=== PATIENT | female | born 1990 | race Caucasian/White ===

== ENCOUNTER 2018-08-03 17:42 | Emergency (ER) | payer BC ==
[2018-08-03] MEDS ORDERED: NS 0.9% 1000 ML** 1,000 ML IV ONE (18:04)
[2018-08-03 18:22] LABS: ABS Basophils 0.1 10^3/ul (0-0.2); ABS Lymphocytes 2.3 10^3/ul (1.0-4.8); ABS Monocytes 0.4 10^3/ul (0-0.8); Eosinophil % 0.6 %; Hematocrit 38 % (35-47); Hemoglobin 13.1 g/dL (12.0-16.0); Lymphocyte % 34.7 %; Mean Corpuscular HGB Conc 34 g/dL (31-36); Mean Corpuscular Hemoglobin 31 pg (27-31); Mean Corpuscular Volume 90 fL (80-97); Mean Platelet Volume 7.1 fL (7.4-10.4); Nucleated Red Blood Cells % 0.1; Platelet Count 312 10^3/uL (150-450); Red Blood Count 4.26 10^6 /uL (3.70-4.87); Red Cell Distribution Width 13 % (10.5-15); White Blood Count 6.8 10^3/uL (3.5-10.8)
[2018-08-03 18:33] LABS: ALT 26 U/L (7-52); AST 18 U/L (13-39); Albumin 4.1 g/dL (3.2-5.2); Albumin/Globulin Ratio 1.2 (1-3); Alkaline Phosphatase 46 U/L (34-104); Anion Gap 7 mmol/L (2-11); BUN/Creatinine Ratio 13.8 (8-20); Blood Urea Nitrogen 11 mg/dL (6-24); C Reactive Protein 2.95 mg/L (<8.01); CO2 Carbon Dioxide 26 mmol/L (22-32); Calcium 8.8 mg/dL (8.6-10.3); Chloride 106 mmol/L (101-111); EGFR African American 104.9 (>60); EGFR Non-African American 86.7 (>60); Globulin 3.3 g/dL (2-4); Glucose 86 mg/dL (70-100); Potassium 4.1 mmol/L (3.5-5.0); Sodium 139 mmol/L (135-145); Total Protein 7.4 g/dL (6.4-8.9)
[2018-08-03 18:39] LABS: HCG Pregnancy < 0.60 mIU/mL
--- NOTE | 2018-08-03 18:51 | ED ---
Respiratory - HPI Summary HPI Summary: Patient complains of hacking cough, fatigue 1 week, lightheadedness, hot spells , chills and fluttering heart 2 days. Denies LOC. Patient was seen at urgent care, had normal EKG and was sent to the ED for blood work. Active symptoms are mild headache, denies any other symptoms at this time. Patient states she hydrates regularly. No antipyretics today. Denies known fever, sore throat, CP , SOB, N/V/D, abdominal pain, change in urine, change in BM. Medical history as migraines. - History of Current Complaint Chief Complaint: EDGeneral Stated Complaint: GENERAL PER PT Time Seen by Provider: 08/03/18 18:00 Hx Obtained From: Patient Onset/Duration: Gradual Onset Initial Severity: Mild Current Severity: Mild Pain Intensity: 2 Character: Cough (Nonproductive) Sputum Amount: None Alleviating Factor(s): Nothing Associated Signs and Symptoms: Chills - Allergy/Home Medications Allergies/Adverse Reactions: Allergies Allergy/AdvReac Type Severity Reaction Status Date / Time No Known Allergies Allergy Verified 08/03/18 17:48 Home Medications: Home Medications Norgestimate-Ethinyl Estradiol [Tri-Sprintec Tablet] 1 tab PO DAILY 08/03/18 [ History Confirmed 08/03/18] PMH/Surg Hx/FS Hx/Imm Hx Endocrine/Hematology History: Denies: Hx Diabetes, Hx Thyroid Disease Cardiovascular History: Denies: Hx Congestive Heart Failure, Hx Hypertension, Hx Pacemaker/ICD Respiratory History: Denies: Hx Asthma, Hx Chronic Obstructive Pulmonary Disease (COPD) GI History: Denies: Hx Ulcer History: Denies: Hx Dialysis Sensory History: Denies: Hx Eye Prosthesis Opthamlomology History: Denies: Hx Legally Blind EENT History: Denies: Hx Deafness Neurological History: Denies: Hx Dementia Infectious Disease History: No Infectious Disease History: Denies: Hx Hepatitis, Hx Human Immunodeficiency Virus (HIV), Traveled Outside the [place] in Last 30 Days - Family History Known Family History: Positive: Hypertension, Diabetes - Social History Alcohol Use: Occasionally Substance Use Type: Reports: None Smoking Status (MU): Never Smoked Tobacco Review of Systems Positive: Chills, Fatigue Eyes: Negative ENT: Negative Positive: Palpitations Positive: Cough Gastrointestinal: Negative Genitourinary: Negative Musculoskeletal: Negative Skin: Negative Positive: Headache Psychological: Normal All Other Systems Reviewed And Are Negative: Yes Physical Exam - Summary Physical Exam Summary: Lung sounds clear to auscultation bilaterally. Abdomen soft nontender. RRR. ENT exam unremarkable. Triage Information Reviewed: Yes Vital Signs On Initial Exam: Initial Vitals Temp Pulse Resp BP Pulse Ox 97.8 F 69 17 124/82 100 08/03/18 17:44 08/03/18 17:44 08/03/18 17:44 08/03/18 17:44 08/03/18 17:44 Vital Signs Reviewed: Yes Appearance: Positive: Well-Appearing Skin: Positive: Warm Head/Face: Positive: Normal Head/Face Inspection Eyes: Positive: Normal ENT: Positive: Normal ENT inspection Neck: Positive: Supple Respiratory/Lung Sounds: Positive: Clear to Auscultation Cardiovascular: Positive: Normal Abdomen Description: Positive: Nontender Musculoskeletal: Positive: Normal Neurological: Positive: Normal Psychiatric: Positive: Normal AVPU Assessment: Alert - Lydia Coma Scale Best Eye Response: 4 - Spontaneous Best Motor Response: 6 - Obeys Commands Best Verbal Response: 5 - Oriented Coma Scale Total: 15 Diagnostics - Vital Signs Vital Signs Temp Pulse Resp BP Pulse Ox 08/03/18 17:44 97.8 F 69 17 124/82 100 - Laboratory Lab Results: Lab Results 08/03/18 08/03/18 Range/Units 18:10 18:10 WBC 6.8 (3.5-10.8) 10^3/uL RBC 4.26 (3.70-4.87) 10^6 /uL Hgb 13.1 (12.0-16.0) g/dL Hct 38 (35-47) % MCV 90 (80-97) fL MCH 31 (27-31) pg MCHC 34 (31-36) g/dL RDW 13 (10.5-15) % Plt Count 312 (150-450) 10^3/uL MPV 7.1 L (7.4-10.4) fL Neut % (Auto) 58.4 % Lymph % (Auto) 34.7 % [place] % (Auto) 5.3 % Eos % (Auto) 0.6 % Baso % (Auto) 1.0 % Absolute Neuts (auto) 4.0 (1.5-7.7) 10^3/ul Absolute Lymphs (auto) 2.3 (1.0-4.8) 10^3/ul Absolute Monos (auto) 0.4 (0-0.8) 10^3/ul Absolute Eos (auto) 0.0 (0-0.6) 10^3/ul Absolute Basos (auto) 0.1 (0-0.2) 10^3/ul Absolute Nucleated RBC 0.0 10^3/ul Nucleated RBC % 0.1 Sodium 139 (135-145) mmol/L Potassium 4.1 (3.5-5.0) mmol/L Chloride 106 (101-111) mmol/L Carbon Dioxide 26 (22-32) mmol/L Anion Gap 7 (2-11) mmol/L BUN 11 (6-24) mg/dL Creatinine 0.80 (0.51-0.95) mg/dL Est GFR ( Amer) 104.9 (>60) Est GFR (Non-Af Amer) 86.7 (>60) BUN/Creatinine Ratio 13.8 (8-20) Glucose 86 (70-100) mg/dL Calcium 8.8 (8.6-10.3) mg/dL Total Bilirubin 0.30 (0.2-1.0) mg/dL AST 18 (13-39) U/L ALT 26 (7-52) U/L Alkaline Phosphatase 46 (34-104) U/L C-Reactive Protein 2.95 (<8.01) mg/L Total Protein 7.4 (6.4-8.9) g/dL Albumin 4.1 (3.2-5.2) g/dL Globulin 3.3 (2-4) g/dL Albumin/Globulin Ratio 1.2 (1-3) TSH Pending Beta HCG, Quant < 0.60 mIU/mL Result Diagrams: 08/03/18 18:10 08/03/18 18:10 Lab Statement: Any lab studies that have been ordered have been reviewed, and results considered in the medical decision making process. Disposition - Course Course Of Treatment: Patient complains of hacking cough, fatigue 1 week, lightheadedness, hot spells, chills and fluttering heart 2 days. Denies LOC. Patient was seen at urgent care, had normal EKG and was sent to the ED for blood work. Active symptoms are mild headache, denies any other symptoms at this time. Patient states she hydrates regularly. No antipyretics today. Denies known fever, sore throat, CP, SOB, N/V/D, abdominal pain, change in urine , change in BM. Medical history as migraines. Physical exam:Lung sounds clear to auscultation bilaterally. Abdomen soft nontender. RRR. ENT exam unremarkable. Vital signs within normal limits. Labs unremarkable. EKG sinus rhythm. Chest x-ray negative for acute process. Diagnosis viral syndrome. - Diagnoses Provider Diagnoses: Viral syndrome Discharge - Sign-Out/Discharge Documenting (check all that apply): Patient Departure Patient Received Moderate/Deep Sedation with Procedure: No - Discharge Plan Condition: Stable Disposition: HOME Patient Education Materials: Viral Syndrome (ED) Referrals: No Primary Care Phys,NOPCP [Primary Care Provider] - Additional Instructions: Drink plenty of fluids to maintain hydration. Take Tylenol or ibuprofen for control of fever and headaches. Rest. Follow-up with primary care. Return to the ED for any new or worsening symptoms. - Billing Disposition and Condition Condition: STABLE Disposition: Home
[2018-08-03 18:59] LABS: TSH (Thyroid Stimulating Horm) 4.34 mcIU/mL (0.34-5.60)
[2018-08-03 20:00] VITALS: BP 100/59
== END 2018-08-03 20:05 | disposition home or self-care (01) ==
LOC: ED 17:42
DX: R05 Cough (principal); R53.83 Other fatigue; R53.1 Weakness; B34.9 Viral infection, unspecified
CPT/HCPCS: 36415; 71046; 80053; 84443; 84702; 85025; 86140; 93005; 96360; 99283

== ENCOUNTER 2018-08-10 18:48 | Emergency (ER) | payer BC ==
[2018-08-10 19:40] LABS: Urine Appearance Cloudy; Urine Bacteria Absent (Absent); Urine Bilirubin Negative (Negative); Urine Blood 2+ (Negative); Urine Color Yellow; Urine Glucose Negative (Negative); Urine Ketones 2+ (Negative); Urine Nitrite Negative (Negative); Urine Protein Negative (Negative); Urine Red Blood Cell 2+(6-10/hpf) (Absent); Urine Squamous Epithelial Cell Present (Absent); Urine Urobilinogen Positive (Negative); Urine White Blood Cell 1+(6-10/hpf) (Absent)
[2018-08-10] MEDS ORDERED: Acetaminophen TAB* 325 MG PO ONE (19:40)
[2018-08-10] MEDS ORDERED: Cephalexin CAP* 500 MG PO ONE (19:51)
[2018-08-10 19:57] LABS: ABS Lymphocytes 1.4 10^3/ul (1.0-4.8); ABS Monocytes 0.7 10^3/ul (0-0.8); Hematocrit 36 % (35-47); Lymphocyte % 11.6 %; Mean Corpuscular HGB Conc 34 g/dL (31-36); Mean Corpuscular Hemoglobin 30 pg (27-31); Mean Corpuscular Volume 89 fL (80-97); Mean Platelet Volume 6.6 fL (7.4-10.4); Platelet Count 323 10^3/uL (150-450); Red Blood Count 3.99 10^6 /uL (3.70-4.87); Red Cell Distribution Width 13 % (10.5-15); White Blood Count 12.2 10^3/uL (3.5-10.8)
[2018-08-10 20:16] LABS: ALT 16 U/L (7-52); AST 14 U/L (13-39); Albumin 3.8 g/dL (3.2-5.2); Albumin/Globulin Ratio 1.2 (1-3); Alkaline Phosphatase 44 U/L (34-104); Anion Gap 6 mmol/L (2-11); BUN/Creatinine Ratio 8.6 (8-20); Blood Urea Nitrogen 7 mg/dL (6-24); C Reactive Protein 108.03 mg/L (<8.01); CO2 Carbon Dioxide 25 mmol/L (22-32); Chloride 103 mmol/L (101-111); EGFR African American 103.4 (>60); EGFR Non-African American 85.5 (>60); Globulin 3.2 g/dL (2-4); Glucose 113 mg/dL (70-100); Sodium 134 mmol/L (135-145)
[2018-08-10 20:22] LABS: HCG Pregnancy < 0.60 mIU/mL
[2018-08-10] MEDS ORDERED: NS 0.9% 1000 ML** 1,000 ML IV ONE (20:37)
--- NOTE | 2018-08-10 22:13 | ED ---
GI/ HPI - HPI Summary HPI Summary: Patient complains of lightheadedness, nausea, low back pain, LUEVANO, increased urinary frequency, increased urinary urge and burning with urination 2 days. Denies fever, cough, sore throat, CP, SOB, V/D, , change in BM, vaginal symptoms. No antipyretics today. Medical history is none. Positive OCP. LMP 3 months ago. - History of Current Complaint Chief Complaint: EDUrogenitalProblems Time Seen by Provider: 08/10/18 19:31 Stated Complaint: POSS UTI/FEELS SICK PER PT Hx Obtained From: Patient Onset/Duration: Started Days Ago Timing: Intermittent Severity: Moderate Current Severity: Moderate Pain Intensity: 6 - Allergy/Home Medications Allergies/Adverse Reactions: Allergies Allergy/AdvReac Type Severity Reaction Status Date / Time No Known Allergies Allergy Verified 08/10/18 19:50 PMH/Surg Hx/FS Hx/Imm Hx Endocrine/Hematology History: Denies: Hx Diabetes, Hx Thyroid Disease Cardiovascular History: Denies: Hx Congestive Heart Failure, Hx Hypertension, Hx Pacemaker/ICD Respiratory History: Denies: Hx Asthma, Hx Chronic Obstructive Pulmonary Disease (COPD) GI History: Denies: Hx Ulcer History: Denies: Hx Dialysis Sensory History: Denies: Hx Eye Prosthesis, Hx Legally Blind, Hx Deafness Opthamlomology History: Denies: Hx Eye Prosthesis, Hx Legally Blind Neurological History: Denies: Hx Dementia Infectious Disease History: No Infectious Disease History: Denies: Hx Hepatitis, Hx Human Immunodeficiency Virus (HIV), Traveled Outside the [place] in Last 30 Days - Family History Known Family History: Positive: Hypertension, Diabetes - Social History Alcohol Use: Occasionally Substance Use Type: Reports: None Smoking Status (MU): Never Smoked Tobacco Review of Systems Constitutional: Negative Eyes: Negative ENT: Negative Cardiovascular: Negative Respiratory: Negative Positive: Vomiting, Nausea Positive: burning, frequency, urgency Musculoskeletal: Negative Skin: Negative Positive: Headache Psychological: Normal All Other Systems Reviewed And Are Negative: Yes Physical Exam - Summary Physical Exam Summary: Abdomen soft nontender. Lower back nontender to palpation. No CVA tenderness bilaterally. Lung sounds clear to auscultation bilaterally. RRR. Triage Information Reviewed: Yes Vital Signs On Initial Exam: Initial Vitals Temp Pulse Resp BP Pulse Ox 100.5 F 120 18 127/80 98 08/10/18 19:00 08/10/18 19:00 08/10/18 19:00 08/10/18 19:00 08/10/18 19:00 Vital Signs Reviewed: Yes Appearance: Positive: Well-Appearing Skin: Positive: Warm Head/Face: Positive: Normal Head/Face Inspection Eyes: Positive: Normal ENT: Positive: Normal ENT inspection Neck: Positive: Supple Respiratory/Lung Sounds: Positive: Clear to Auscultation Cardiovascular: Positive: Normal Abdomen Description: Positive: Nontender Musculoskeletal: Positive: Normal Neurological: Positive: Normal Psychiatric: Positive: Normal AVPU Assessment: Alert - Lydia Coma Scale Best Eye Response: 4 - Spontaneous Best Motor Response: 6 - Obeys Commands Best Verbal Response: 5 - Oriented Coma Scale Total: 15 Diagnostics - Vital Signs Vital Signs Temp Pulse Resp BP Pulse Ox 08/10/18 21:48 98.4 F 103 16 118/70 100 08/10/18 19:00 100.5 F 120 18 127/80 98 - Laboratory Lab Results: Lab Results 08/10/18 08/10/18 08/10/18 Range/Units 19:09 19:51 19:51 WBC 12.2 H (3.5-10.8) 10^3/uL RBC 3.99 (3.70-4.87) 10^6 /uL Hgb 12.0 (12.0-16.0) g/dL Hct 36 (35-47) % MCV 89 (80-97) fL MCH 30 (27-31) pg MCHC 34 (31-36) g/dL RDW 13 (10.5-15) % Plt Count 323 (150-450) 10^3/uL MPV 6.6 L (7.4-10.4) fL Neut % (Auto) 82.5 % Lymph % (Auto) 11.6 % [place] % (Auto) 5.7 % Eos % (Auto) 0.0 % Baso % (Auto) 0.2 % Absolute Neuts (auto) 10.0 H (1.5-7.7) 10^3/ul Absolute Lymphs (auto) 1.4 (1.0-4.8) 10^3/ul Absolute Monos (auto) 0.7 (0-0.8) 10^3/ul Absolute Eos (auto) 0.0 (0-0.6) 10^3/ul Absolute Basos (auto) 0.0 (0-0.2) 10^3/ul Absolute Nucleated RBC 0.0 10^3/ul Nucleated RBC % 0.0 Sodium 134 L (135-145) mmol/L Potassium 4.0 (3.5-5.0) mmol/L Chloride 103 (101-111) mmol/L Carbon Dioxide 25 (22-32) mmol/L Anion Gap 6 (2-11) mmol/L BUN 7 (6-24) mg/dL Creatinine 0.81 (0.51-0.95) mg/dL Est GFR ( Amer) 103.4 (>60) Est GFR (Non-Af Amer) 85.5 (>60) BUN/Creatinine Ratio 8.6 (8-20) Glucose 113 H (70-100) mg/dL Lactic Acid (0.5-2.0) mmol/L Calcium 9.0 (8.6-10.3) mg/dL Total Bilirubin 0.60 (0.2-1.0) mg/dL AST 14 (13-39) U/L ALT 16 (7-52) U/L Alkaline Phosphatase 44 (34-104) U/L C-Reactive Protein 108.03 H (<8.01) mg/L Total Protein 7.0 (6.4-8.9) g/dL Albumin 3.8 (3.2-5.2) g/dL Globulin 3.2 (2-4) g/dL Albumin/Globulin Ratio 1.2 (1-3) Beta HCG, Quant < 0.60 mIU/mL Urine Color Yellow Urine Appearance Cloudy Urine pH 6.0 (5-9) Ur Specific [place] 1.020 (1.010-1.030) Urine Protein Negative (Negative) Urine Ketones 2+ A (Negative) Urine Blood 2+ A (Negative) Urine Nitrate Negative (Negative) Urine Bilirubin Negative (Negative) Urine Urobilinogen Positive A (Negative) Ur Leukocyte Esterase Trace A (Negative) Urine WBC (Auto) 1+(6-10/hpf) A (Absent) Urine RBC (Auto) 2+(6-10/hpf) A (Absent) Ur Squamous Epith Cells Present A (Absent) Urine Bacteria Absent (Absent) Urine Glucose Negative (Negative) 08/10/18 Range/Units 20:44 WBC (3.5-10.8) 10^3/uL RBC (3.70-4.87) 10^6 /uL Hgb (12.0-16.0) g/dL Hct (35-47) % MCV (80-97) fL MCH (27-31) pg MCHC (31-36) g/dL RDW (10.5-15) % Plt Count (150-450) 10^3/uL MPV (7.4-10.4) fL Neut % (Auto) % Lymph % (Auto) % [place] % (Auto) % Eos % (Auto) % Baso % (Auto) % Absolute Neuts (auto) (1.5-7.7) 10^3/ul Absolute Lymphs (auto) (1.0-4.8) 10^3/ul Absolute Monos (auto) (0-0.8) 10^3/ul Absolute Eos (auto) (0-0.6) 10^3/ul Absolute Basos (auto) (0-0.2) 10^3/ul Absolute Nucleated RBC 10^3/ul Nucleated RBC % Sodium (135-145) mmol/L Potassium (3.5-5.0) mmol/L Chloride (101-111) mmol/L Carbon Dioxide (22-32) mmol/L Anion Gap (2-11) mmol/L BUN (6-24) mg/dL Creatinine (0.51-0.95) mg/dL Est GFR ( Amer) (>60) Est GFR (Non-Af Amer) (>60) BUN/Creatinine Ratio (8-20) Glucose (70-100) mg/dL Lactic Acid 0.9 (0.5-2.0) mmol/L Calcium (8.6-10.3) mg/dL Total Bilirubin (0.2-1.0) mg/dL AST (13-39) U/L ALT (7-52) U/L Alkaline Phosphatase (34-104) U/L C-Reactive Protein (<8.01) mg/L Total Protein (6.4-8.9) g/dL Albumin (3.2-5.2) g/dL Globulin (2-4) g/dL Albumin/Globulin Ratio (1-3) Beta HCG, Quant mIU/mL Urine Color Urine Appearance Urine pH (5-9) Ur Specific [place] (1.010-1.030) Urine Protein (Negative) Urine Ketones (Negative) Urine Blood (Negative) Urine Nitrate (Negative) Urine Bilirubin (Negative) Urine Urobilinogen (Negative) Ur Leukocyte Esterase (Negative) Urine WBC (Auto) (Absent) Urine RBC (Auto) (Absent) Ur Squamous Epith Cells (Absent) Urine Bacteria (Absent) Urine Glucose (Negative) Result Diagrams: 08/10/18 19:51 08/10/18 19:51 Lab Statement: Any lab studies that have been ordered have been reviewed, and results considered in the medical decision making process. GIGU Course/Dx - Course Course Of Treatment: Patient complains of lightheadedness, nausea, low back pain , LUEVANO, increased urinary frequency, increased urinary urge and burning with urination 2 days. Denies fever, cough, sore throat, CP, SOB, V/D, , change in BM, vaginal symptoms. No antipyretics today. Medical history is none. Positive OCP. LMP 3 months ago. Physical exam:Abdomen soft nontender. Lower back nontender to palpation. No CVA tenderness bilaterally. Lung sounds clear to auscultation bilaterally. RRR. Temperature 100.5 at triage, tachycardic at 120. Vital signs otherwise unremarkable. WBC 12.2. CRP 108. Labs otherwise unremarkable. Lactic normal. UA positive for UTI. Patient given Tylenol and 1 L normal saline with subsequent resolution of fever and tachycardia. Patient started on Keflex 500 mg, Rx for same. - Diagnoses Provider Diagnoses: UTI (urinary tract infection) Discharge - Sign-Out/Discharge Documenting (check all that apply): Patient Departure Patient Received Moderate/Deep Sedation with Procedure: No - Discharge Plan Condition: Stable Disposition: HOME Prescriptions: Cephalexin CAP* [Keflex CAP*] 500 mg PO TID 7 Days #21 cap Patient Education Materials: Urinary Tract Infection in Women (ED) Referrals: No Primary Care Phys,NOPCP [Primary Care Provider] - Additional Instructions: Take antibiotics as directed. Drink plenty of fluids to maintain hydration. Alternate ibuprofen 600 mg with Tylenol 650 mg every 3 hours for control of fever and body aches. Follow-up with primary care. Return to the ED for any new or worsening symptoms. - Billing Disposition and Condition Condition: STABLE Disposition: Home
[2018-08-10 22:44] VITALS: BP 118/63
--- NOTE | 2018-08-12 05:43 | PN ---
Progress Note - Progress Note Date of Service: 08/12/18 Note: Patient's urine culture grew Escherichia coli 50-75,000. Patient placed on Keflex. Will wait for final culture for sensitivity.
--- NOTE | 2018-08-13 05:44 | PN ---
Progress Note - Progress Note Date of Service: 08/13/18 Note: patient is on Keflex. finally urine culture shows sensitivity to. No further action required.
== END 2018-08-10 22:43 | disposition home or self-care (01) ==
LOC: ED 18:48
DX: N39.0 Urinary tract infection, site not specified (principal); R11.2 Nausea with vomiting, unspecified
CPT/HCPCS: 36415; 80053; 81003; 81015; 83605; 84702; 85025; 86140; 87077; 87086; 87186; 96360; 96361; 99282; A9270-GY

== ENCOUNTER 2018-08-13 14:05 | Inpatient (IN) | payer BC ==
[2018-08-13] MEDS ORDERED: Ondansetron INJ* 2 MG/ML VIAL IV ONE (16:17)
[2018-08-13] MEDS ORDERED: NS 0.9% IV ONE (16:24)
[2018-08-13 16:29] LABS: Urine Appearance Cloudy; Urine Bacteria Absent (Absent); Urine Bilirubin Negative (Negative); Urine Blood 1+ (Negative); Urine Color Amber; Urine Glucose Negative (Negative); Urine Ketones Trace (Negative); Urine Nitrite Negative (Negative); Urine Protein 2+(100 mg/dL) (Negative); Urine Red Blood Cell 3+(>10/hpf) (Absent); Urine Specific Gravity 1.028 (1.010-1.030); Urine Squamous Epithelial Cell Present (Absent); Urine Urobilinogen Positive (Negative); Urine White Blood Cell 2+(11-20/hpf) (Absent)
--- NOTE | 2018-08-13 16:32 | ED ---
GI/ HPI - HPI Summary HPI Summary: A 28 y/o female presents to [facility] with a chief complaint of continued urinary symptoms while being treated for a UTI since 3 days ago. She reportedly had E. coli in her urine. At triage she rated her pain as an 8/10 in severity. She reports dizziness, N/V, headache, and bilateral lower back pain. She also complains of intermittent fever, sweats and chills. She had a temperature of 101.7 in the ED room. Pt denies any erythema of eyes, sore throat, CP, SOB, cough, abdominal pain, edema, or rash. She is on control and denies chance of . - History of Current Complaint Chief Complaint: EDUrogenitalProblems Time Seen by Provider: 08/13/18 15:43 Stated Complaint: FEELS SO SICK PER PT Hx Obtained From: Patient, Family/Remote Sensing Advisor Onset/Duration: Started Days Ago, Still Present Timing: Constant, Lasting Days Severity: Severe Current Severity: Severe Pain Intensity: 8 - out of 10 Location of Pain: None - urinary symptoms Pain Characteristics: Unable to describe Associated Signs and Symptoms: Positive: Back Pain, Nausea, Vomiting, Fever, Chills, UTI Symptoms. Negative: Diarrhea, Cough, Chest Pain Aggravating Factor(s): Nothing Alleviating Factor(s): Nothing - Allergy/Home Medications Allergies/Adverse Reactions: Allergies Allergy/AdvReac Type Severity Reaction Status Date / Time No Known Allergies Allergy Verified 08/10/18 19:50 PMH/Surg Hx/FS Hx/Imm Hx Endocrine/Hematology History: Denies: Hx Diabetes, Hx Thyroid Disease Cardiovascular History: Denies: Hx Congestive Heart Failure, Hx Hypertension, Hx Pacemaker/ICD Respiratory History: Denies: Hx Asthma, Hx Chronic Obstructive Pulmonary Disease (COPD) GI History: Denies: Hx Ulcer History: Denies: Hx Dialysis Sensory History: Denies: Hx Eye Prosthesis, Hx Legally Blind, Hx Deafness Opthamlomology History: Denies: Hx Eye Prosthesis, Hx Legally Blind Neurological History: Denies: Hx Dementia Infectious Disease History: No Infectious Disease History: Denies: Hx Hepatitis, Hx Human Immunodeficiency Virus (HIV), Traveled Outside the [place] in Last 30 Days - Family History Known Family History: Positive: Hypertension, Diabetes - Social History Alcohol Use: Rare Substance Use Type: Reports: None Smoking Status (MU): Never Smoked Tobacco Review of Systems Positive: Fever - 101.7 in room, Chills, Skin Diaphoresis Negative: Erythema Negative: Sore Throat Negative: Chest Pain Negative: Shortness Of Breath, Cough Positive: Vomiting, Nausea. Negative: Abdominal Pain Positive: dysuria Positive: Myalgia - lower back pain. Negative: Edema Negative: Rash Neurological: Other - positive: dizziness Positive: Headache All Other Systems Reviewed And Are Negative: Yes Physical Exam - Summary Physical Exam Summary: Constitutional: Well-developed, Well-nourished, Alert. (-) Distressed Skin: Warm, Dry HENT: Normocephalic; Atraumatic Eyes: Conjunctiva normal Neck: Musculoskeletal ROM normal neck. (-) JVD, (-) Stridor, (-) Tracheal deviation Cardio: Rhythm regular, rate normal, Heart sounds normal; Intact distal pulses; The pedal pulses are 2+ and symmetric. Radial pulses are 2+ and symmetric. (-) Murmur Pulmonary/Chest wall: Effort normal. (-) Respiratory distress, (-) Wheezes, (-) Rales Abd: Soft, bilateral CVA tenderness., (-) Distension, (-) Guarding, (-) Rebound Musculoskeletal: (-) Edema Lymph: (-) Cervical adenopathy Neuro: Alert, Oriented x3 Psych: Mood and affect Normal Triage Information Reviewed: Yes Vital Signs On Initial Exam: Initial Vitals Temp Pulse Resp BP Pulse Ox 98.8 F 122 16 120/88 96 08/13/18 14:06 08/13/18 14:06 08/13/18 14:06 08/13/18 14:06 08/13/18 14:06 Vital Signs Reviewed: Yes Diagnostics - Vital Signs Vital Signs Temp Pulse Resp BP Pulse Ox 08/13/18 15:17 100.6 F 108 121/86 96 08/13/18 14:06 98.8 F 122 16 120/88 96 - Laboratory Result Diagrams: 08/13/18 16:16 08/13/18 16:16 Lab Statement: Any lab studies that have been ordered have been reviewed, and results considered in the medical decision making process. - CT abdomen/pelvis CT Interpretation Completed By: Radiologist Summary of CT Findings: . 1. Multifocal pneumonia. 2. No acute findings in the abdomen. ED physician has reviewed this imaging report. GIGU Course/Dx - Course Course Of Treatment: A 28 y/o female presents to [facility] with a chief complaint of continued urinary symptoms while being treated for a UTI since 3 days ago. The physical exam revealed bilateral CVA tenderness. The patient reports that she missed her morning and afternoon doses of Keflex two days ago. In the ED course the patient was given Sodium Chloride IV, Tylenol PO and Zofran IV. Bloodwork, chemistries and urines obtained. Urine Protein 2+, Trace urine ketones, urine blood 1+, urine urobilinogen positive, urine WBC 2+, Urine RBC 3+ , Ur Squamous Epith Cells present. Abdomen/pelvis CT impression: 1. Multifocal pneumonia. 2. No acute findings in the abdomen. Case discussed with Dr. Ray , hospitalist, who accetped the patient for admission. The patient is agreeable with this plan. - Diagnoses Provider Diagnoses: Pyelonephritis - Physician Notifications Discussed Care Of Patient With: Surjit Ray Time Discussed With Above Provider: 16:54 Instructed by Provider To: Admit As Inpatient Discharge - Sign-Out/Discharge Documenting (check all that apply): Patient Departure - admit Patient Received Moderate/Deep Sedation with Procedure: No - Discharge Plan Condition: Fair Disposition: ADMITTED TO [facility] - Attestation Statements Document Initiated by Scribe: Yes Documenting Scribe: Eddie Balderrama Provider For Whom Scribe is Documenting (Include Credential): Sunny Maloney MD Scribe Attestation: Eddie Lauren, scribed for Sunny Maloney MD on 08/13/18 at 2138. Status of Scribe Document: Ready
[2018-08-13] MEDS ORDERED: Acetaminophen TAB* 325 MG PO ONE (16:37)
[2018-08-13 16:38] LABS: ABS Basophils 0.1 10^3/ul (0-0.2); ABS Eosinophils 0.1 10^3/ul (0-0.6); ABS Lymphocytes 0.9 10^3/ul (1.0-4.8); ABS Monocytes 0.5 10^3/ul (0-0.8); ABS Neutrophils 9.2 10^3/ul (1.5-7.7); Eosinophil % 0.6 %; Hematocrit 37 % (35-47); Hemoglobin 12.9 g/dL (12.0-16.0); Lymphocyte % 8.5 %; Mean Corpuscular HGB Conc 35 g/dL (31-36); Mean Corpuscular Hemoglobin 31 pg (27-31); Mean Corpuscular Volume 89 fL (80-97); Mean Platelet Volume 6.6 fL (7.4-10.4); Platelet Count 385 10^3/uL (150-450); Red Blood Count 4.15 10^6 /uL (3.70-4.87); Red Cell Distribution Width 13 % (10.5-15); White Blood Count 10.7 10^3/uL (3.5-10.8)
[2018-08-13] MEDS ORDERED: cefTRIAXone(*) 1 GM in NS 0.9% 50 ML* 50 ML IVPB ONE (16:39)
[2018-08-13] MEDS ORDERED: Ondansetron INJ* 2 MG/ML VIAL ONE (16:42)
[2018-08-13 16:50] LABS: Activated Partial Thrombo Time 31.4 seconds (26.0-36.3); INR 1.29 (0.82-1.09)
[2018-08-13 17:02] LABS: Albumin 3.9 g/dL (3.2-5.2); BUN/Creatinine Ratio 7.3 (8-20); EGFR Non-African American 84.3 (>60); Globulin 3.8 g/dL (2-4); Potassium 3.7 mmol/L (3.5-5.0); Total Bilirubin 0.5 mg/dL (0.2-1.0); Total Protein 7.7 g/dL (6.4-8.9)
[2018-08-13] MEDS ORDERED: Ketorolac INJ* 30 MG/ML 1 ML VIAL IV PUSH ONE (18:32)
[2018-08-13] MEDS ORDERED: Ondansetron INJ* 2 MG/ML VIAL IV PRN (19:55)
[2018-08-13] MEDS: NS 0.9% 1000 ML** 1,000 ML IV SCH (22:01)
--- NOTE | 2018-08-13 22:06 | HP ---
HISTORY AND PHYSICAL: DATE OF ADMISSION: 08/13/18 PRIMARY CARE PROVIDER: None. ATTENDING PHYSICIAN WHILE IN THE HOSPITAL: Dr. Christiano Isaac* (dictated by Emily Alcocer NP). CHIEF COMPLAINT: Fever, UTI, cough, fatigue. HISTORY OF PRESENT ILLNESS: Ms. Orlando is a 28-year-old female with no significant past medical history who presented to the emergency room with the complaints of generalized fatigue, body aches, dizziness with an occasional cough. The patient reports that 2 weeks ago, she had a syncopal event. She was seen in the emergency room, given IV fluids, and discharged home. The patient reports that she continued to feel poorly and re-presented to the emergency room approximately a week later on 08/10/18. At that time, she was diagnosed with a urinary tract infection and she was discharged home on Keflex 500 mg t.i.d. The patient reports she has taken 5 doses of the medication. She started that Thursday evening. The patient reports that she continues to have fatigue, body aches, felt dizzy. She reports that she slept all yesterday. She states that yesterday she started with vomiting and nausea, unable to keep anything down. She reports she continues to have urinary frequency, urgency, and pain with urination and lower back pain that is on and off, more consistent today with blood in the urine. Due to her continued symptoms, she re-presented to the emergency room for further evaluation. While in the emergency room, she had routine lab work drawn. Her urine was positive for protein, ketones, and blood. Urobilinogen was positive. Urine wbc's, rbc's , and squamous epithelial cells were all positive. Bacteria was absent. The patient did have a temperature of 100.6 and she was hypotensive with blood pressures as low as 89/58. Due to these symptoms, we were asked to see and evaluate her for admission. PAST MEDICAL HISTORY: None. PAST SURGICAL HISTORY: 1. The patient had tubes in her ears x2 as a child. 2. [place] teeth. HOME MEDICATIONS: She takes Tri-Sprintec 1 tablet p.o. daily and is currently taking Keflex 500 mg p.o. t.i.d. ALLERGIES: No known drug allergies. FAMILY HISTORY: No reported history of coronary artery disease or diabetes. Maternal grandmother with history of uterine cancer. SOCIAL HISTORY: The patient denies tobacco or illicit drug use. She does report occasional alcohol use. Surrogate decision maker in the event she is unable to make her own decisions is her mother. She is a full code. REVIEW OF SYSTEMS: She does report fevers. She denies chest pain or edema. She does report occasional dry cough. Denies any hemoptysis or shortness of breath. She does report nausea. Denies any diarrhea. She does report mild lower back pain that has been on and off since Thursday, but more consistent today. She does report blood in the urine, pain, frequency, and urgency. Denies any focal weakness or sensory loss, visual complaints, or dysphagia. She does report generalized body aches and joint aches. She denies any rashes, lesions, or open sores. Denies any psychosis or anxiety. The patient reports that her last menstrual period was approximately 3 months ago. She does report she is on control and only gets her period q.3 months. She did have a serum urine test on 08/10/18 that was negative. PHYSICAL EXAMINATION GENERAL: Ms. Orlando is alert and oriented, resting on the stretcher in the emergency room. She appears fatigued. She is in no acute distress. VITAL SIGNS: Blood pressure 102/64, heart rate 79, respirations are 16, O2 saturation 96%, temperature was 98.8, T-max was 100.6. HEENT: Head is atraumatic, normocephalic. Eyes: EOMs are intact. Sclerae anicteric and not pale. Oral mucosa appeared to be moist. NECK: Supple. LUNGS: Clear to auscultation, diminished in the bases. CARDIAC: S1, S2. Regular rate and rhythm. No murmurs, rubs, or gallops. ABDOMEN: Obese, soft, and nontender. Bowel sounds are present x4. She does have bilateral CVA tenderness with palpation. MUSCULOSKELETAL: She is able to move all 4 extremities with 5/5 strength. NEUROLOGIC: She is awake, alert, oriented x3. Speech is clear. Thought process is intact. There are no gross focal deficits. SKIN: Warm, dry, and intact. DIAGNOSTIC STUDIES/LAB DATA: WBCs are 10.7, RBCs are 4.15, hemoglobin 12.9, hematocrit is 37, platelet count 385. INR is 1.29, aPTT was 31.4. Sodium 137, potassium 3.7, chloride 103, carbon dioxide is 24, anion gap is 10, BUN was 6, creatinine 0.82, glucose is 94, lactic acid 1.2; repeat was 0.7, calcium 9.1. ASTs were 17, ALTs were 22, alkaline phosphatase was 52. Urine was elizabeth cloudy , pH was 6.0, specific gravity 1.028. Urine protein was 2+, ketones were trace , blood was 1+, nitrites were negative, bilirubin was negative. Urobilinogen was positive. Urine leukocyte esterase was negative. Urine wbc's were 2+, rbc' s 3+. Urine squamous epithelial cells were present, bacteria was absent, glucose was negative. The patient had a CT of the abdomen and pelvis. Radiologist's impression: Multifocal pneumonia in bilateral lower lobes. No acute findings in the abdomen. Kidneys and ureters normal. No hydronephrosis. Chest x-ray, appears to have left lower lobe pneumonia on chest x-ray. Radiologist's impression is currently pending. ASSESSMENT AND PLAN: Ms. Orlando is a 28-year-old female with no significant past medical history who presented to the emergency room with complaints of general malaise, fatigue, dizzy, body aches, and fever who was found to have pneumonia. She will be admitted under observation for: 1. Pneumonia. I will get a urine for legionella and strep pneumoniae. She has had blood cultures that are currently pending, but we will continue her on ceftriaxone and azithromycin. She was given 3500 cc bolus of normal saline in the emergency room. I will continue normal saline at 125 cc per hour. 2. Urinary tract infection. The patient was diagnosed with a urinary tract infection on Thursday and has received 5 doses of Keflex. I will continue her on ceftriaxone 1 g IV q.24 hours for her pneumonia, which will also cover her urinary tract infection. 3. FEN. She can have a regular diet. 4. Code status. She is a full code. 4. DVT prophylaxis. SCDs. 5. Disposition. She will be placed on observation on the medical floor. TIME SPENT: Time spent on this admission was approximately 60 minutes, greater than half that time was spent at the bedside reviewing events leading thus far to her hospitalization, performing my physical exam, and reviewing my plan of care. I have discussed this with my attending, Dr. Christiano Isaac; he is in agreement with my plan. EMILY ALCOCER, [employer]ER [id number]/[facility] #: [id number] VON
[2018-08-13] MEDS: Azithromycin 500 mg/250 ml NS 500 MG/250 ML BAG IVPB SCH (22:16)
[2018-08-14] MEDS: NS 0.9% 1000 ML** 1,000 ML IV SCH (08:04)
[2018-08-14 08:48] LABS: ABS Eosinophils 0.1 10^3/ul (0-0.6); ABS Lymphocytes 1.1 10^3/ul (1.0-4.8); ABS Monocytes 0.5 10^3/ul (0-0.8); ABS Neutrophils 6.7 10^3/ul (1.5-7.7); Eosinophil % 1.4 %; Hematocrit 33 % (35-47); Hemoglobin 11.2 g/dL (12.0-16.0); Lymphocyte % 13.1 %; Mean Corpuscular HGB Conc 34 g/dL (31-36); Mean Corpuscular Hemoglobin 31 pg (27-31); Mean Corpuscular Volume 90 fL (80-97); Mean Platelet Volume 6.6 fL (7.4-10.4); Platelet Count 326 10^3/uL (150-450); Red Blood Count 3.65 10^6 /uL (3.70-4.87); Red Cell Distribution Width 13 % (10.5-15); White Blood Count 8.5 10^3/uL (3.5-10.8)
[2018-08-14] MEDS ORDERED: NORGESTIMATE ETH ESTRADIOL PO SCH (09:00)
[2018-08-14 09:10] LABS: BUN/Creatinine Ratio 9.7 (8-20); Calcium 7.6 mg/dL (8.6-10.3); EGFR African American 140.8 (>60); EGFR Non-African American 116.4 (>60); Potassium 3.5 mmol/L (3.5-5.0)
[2018-08-14] MEDS: Acetaminophen TAB* 325 MG PO PRN ×2 (11:34→17:26)
--- NOTE | 2018-08-14 15:04 | PN ---
Subjective Date of Service: 08/14/18 Interval History: seen Today in good spirit, less flank tenderness and improved breathing. Afebrile. Urine for legionella came back positive. on Azithromycin Past Medical History: Unchanged from Admission Objective Active Medications: Acetaminophen (Tylenol Tab*) 650 mg PO Q4H PRN PRN Reason: FEVER/PAIN Last Admin: 08/14/18 11:34 Dose: 650 mg Azithromycin (Zithromax 500 Mg/250 Ml) 500 mg in 250 mls @ 250 mls/hr IVPB Q24H [facility] Last Admin: 08/13/18 22:16 Dose: 250 mls/hr Sodium Chloride (Ns 0.9% 1000 Ml) 1,000 mls @ 125 mls/hr IV PER RATE [facility] Last Admin: 08/14/18 08:04 Dose: 125 mls/hr Ceftriaxone Sodium 1 gm/ (Sodium Chloride) 50 mls @ 200 mls/hr IVPB Q24H [facility] Norgestimate (Ortho Tri-Cyclen (Nf)) 1 tab PO BEDTIME [facility] Ondansetron HCl (Zofran Inj*) 4 mg IV Q4H PRN PRN Reason: NAUSEA/VOMITING Last Admin: 08/13/18 23:00 Dose: 4 mg Vital Signs - 8 hr 08/14/18 08/14/18 08/14/18 08:30 08:32 08:34 Temperature 97.9 F Pulse Rate 91 88 Respiratory 24 20 Rate Blood Pressure 142/77 (mmHg) O2 Sat by Pulse 99 99 Oximetry 08/14/18 11:30 Temperature 97.9 F Pulse Rate 103 Respiratory 20 Rate Blood Pressure 139/81 (mmHg) O2 Sat by Pulse 96 Oximetry Oxygen Devices in Use Now: None Appearance: awake, alert. no distress, obese Eyes: PERRLA Ears/Nose/Mouth/Throat: NL Teeth, Lips, Gums, Mucous Membranes Moist Neck: NL Appearance and Movements; NL JVP, Trachea Midline Respiratory: Symmetrical Chest Expansion and Respiratory Effort, Clear to Auscultation Cardiovascular: NL Sounds; No Murmurs; No JVD Abdominal: NL Sounds; No Tenderness; No Distention Extremities: No Edema Skin: No Rash or Ulcers Neurological: Alert and Oriented x 3 Result Diagrams: 08/14/18 08:14 08/14/18 08:14 Microbiology and Other Data: Microbiology 08/13/18 16:00 Urine Culture - Final Urine No Growth (<1,000 CFU/mL) 08/13/18 22:04 Legionella Urinary Antigen - Final Urine Positive Legionella Antigen Streptococcus pneumoniae Ag Screen - Final Negative S. pneumo Antigen Assess/Plan/Problems-Billing Assessment: 28 y/o female admitted for fever and pleuritic chest pain diagnosed for legionella pneumoniae - Patient Problems (1) Pneumonia Current Visit: Yes Status: Acute Code(s): J18.9 - PNEUMONIA, UNSPECIFIED ORGANISM SNOMED Code(s): 310177152 Comment: - urine for legionella came back positive - Patient covered with Azithromcyin IV from admission - I will continue both rocephin and azithromycin for now - I consulted ID regard treatment course, duration and whether or not is reportable. (2) UTI (urinary tract infection) Current Visit: Yes Status: Acute Comment: - E-coli from previous ER admission. - At this time it is being treated properly with Ceftriaxone for her pneumonaie anyway. Will continue - CT abdomen did not show any evidence of hydro or pyelo - her hematuria most likely due to her menses (active) (3) Hematuria Current Visit: Yes Status: Acute Code(s): R31.9 - HEMATURIA, UNSPECIFIED SNOMED Code(s): 57750616 Comment: - her hematuria most likely due to her menses (active) (4) DVT prophylaxis Current Visit: Yes Status: Acute Code(s): Z29.9 - ENCOUNTER FOR PROPHYLACTIC MEASURES, UNSPECIFIED SNOMED Code(s): 476457408 Comment: - low risk, ambulate
[2018-08-14] MEDS: cefTRIAXone(*) 1 GM in NS 0.9% 50 ML* 50 ML IVPB SCH (17:25)
[2018-08-14] MEDS: NORGESTIMATE ETH ESTRADIOL PO SCH (20:14)
[2018-08-14] MEDS: Azithromycin 500 mg/250 ml NS 500 MG/250 ML BAG IVPB SCH (20:14)
[2018-08-15] MEDS: cefTRIAXone(*) 1 GM in NS 0.9% 50 ML* 50 ML IVPB SCH (17:24)
--- NOTE | 2018-08-15 17:29 | PN ---
Subjective Date of Service: 08/15/18 Interval History: Pt reports feeling better.Urinary symptoms improved.SOB improved Past Medical History: Unchanged from Admission Objective Active Medications: Acetaminophen (Tylenol Tab*) 650 mg PO Q4H PRN PRN Reason: FEVER/PAIN Last Admin: 08/14/18 17:26 Dose: 650 mg Azithromycin (Zithromax 500 Mg/250 Ml) 500 mg in 250 mls @ 250 mls/hr IVPB Q24H [facility] Last Admin: 08/14/18 20:14 Dose: 250 mls/hr Ceftriaxone Sodium 1 gm/ (Sodium Chloride) 50 mls @ 200 mls/hr IVPB Q24H [facility] Last Admin: 08/14/18 17:25 Dose: 200 mls/hr Norgestimate (Ortho Tri-Cyclen (Nf)) 1 tab PO BEDTIME [facility] Last Admin: 08/14/18 20:14 Dose: 1 tab Ondansetron HCl (Zofran Inj*) 4 mg IV Q4H PRN PRN Reason: NAUSEA/VOMITING Last Admin: 08/13/18 23:00 Dose: 4 mg Vital Signs - 8 hr 08/15/18 08/15/18 08/15/18 09:30 11:07 15:39 Temperature 97.9 F 98.1 F Pulse Rate 90 84 Respiratory 20 20 16 Rate Blood Pressure 119/74 120/71 (mmHg) O2 Sat by Pulse 99 98 Oximetry Oxygen Devices in Use Now: None Eyes: No Scleral Icterus Ears/Nose/Mouth/Throat: NL Teeth, Lips, Gums Neck: NL Appearance and Movements; NL JVP Respiratory: Symmetrical Chest Expansion and Respiratory Effort, Clear to Auscultation Cardiovascular: NL Sounds; No Murmurs; No JVD Abdominal: NL Sounds; No Tenderness; No Distention Extremities: No Edema Result Diagrams: 08/14/18 08:14 08/14/18 08:14 Microbiology and Other Data: Microbiology 08/13/18 16:00 Urine Culture - Final Urine No Growth (<1,000 CFU/mL) 08/13/18 22:04 Legionella Urinary Antigen - Final Urine Positive Legionella Antigen Streptococcus pneumoniae Ag Screen - Final Negative S. pneumo Antigen Assess/Plan/Problems-Billing Assessment: 28 y/o female admitted for fever and pleuritic chest pain diagnosed for legionella pneumoniae - Patient Problems (1) Pneumonia Current Visit: Yes Status: Acute Code(s): J18.9 - PNEUMONIA, UNSPECIFIED ORGANISM SNOMED Code(s): 944174035 Comment: - urine for legionella came back positive - Patient covered with Azithromcyin IV from admission - I will continue both rocephin and azithromycin for now ( ?uti also) - Dr Isaac had consulted ID -Clinically improving, if better tomorrow, can be discharged on PO abx (2) Hematuria Current Visit: Yes Status: Acute Code(s): R31.9 - HEMATURIA, UNSPECIFIED SNOMED Code(s): 32452809 Comment: - her hematuria most likely due to her menses (active) (3) UTI (urinary tract infection) Current Visit: Yes Status: Acute Comment: - E-coli from previous ER admission. - At this time it is being treated properly with Ceftriaxone for her pneumonaie anyway. Will continue - CT abdomen did not show any evidence of hydro or pyelo - her hematuria most likely due to her menses (active) (4) DVT prophylaxis Current Visit: Yes Status: Acute Code(s): Z29.9 - ENCOUNTER FOR PROPHYLACTIC MEASURES, UNSPECIFIED SNOMED Code(s): 849401831 Comment: - low risk, ambulate
[2018-08-15] MEDS: Acetaminophen TAB* 325 MG PO PRN (20:00)
[2018-08-15] MEDS: NORGESTIMATE ETH ESTRADIOL PO SCH (20:01)
[2018-08-15] MEDS: Azithromycin 500 mg/250 ml NS 500 MG/250 ML BAG IVPB SCH (20:01)
[2018-08-16 07:27] LABS: ABS Eosinophils 0.2 10^3/ul (0-0.6); ABS Lymphocytes 1.7 10^3/ul (1.0-4.8); ABS Monocytes 0.4 10^3/ul (0-0.8); ABS Neutrophils 4.6 10^3/ul (1.5-7.7); Eosinophil % 2.7 %; Hematocrit 32 % (35-47); Hemoglobin 10.9 g/dL (12.0-16.0); Lymphocyte % 23.8 %; Mean Corpuscular HGB Conc 34 g/dL (31-36); Mean Corpuscular Hemoglobin 30 pg (27-31); Mean Corpuscular Volume 89 fL (80-97); Mean Platelet Volume 6.4 fL (7.4-10.4); Nucleated Red Blood Cells % 0.1; Platelet Count 359 10^3/uL (150-450); Red Blood Count 3.58 10^6 /uL (3.70-4.87); Red Cell Distribution Width 13 % (10.5-15); White Blood Count 6.9 10^3/uL (3.5-10.8)
[2018-08-16 07:47] LABS: BUN/Creatinine Ratio 6.5 (8-20); Calcium 8.2 mg/dL (8.6-10.3); EGFR African American 140.8 (>60); EGFR Non-African American 116.4 (>60); Potassium 3.7 mmol/L (3.5-5.0)
[2018-08-16 07:52] VITALS: BP 103/65
--- NOTE | 2018-08-16 08:15 | PN ---
Subjective Date of Service: 08/16/18 Interval History: HD # 4 on 08/16 28F no sig PMH aside from obesity who was admitted with pleurtic chest pain found to have PNA, legionella antigen + Ovenright, no acute events, VSS, mild hypotensive c/w baseline in young woman Labs: Unchanged, stable This morning feeling great seen with at bedside, eager to go home, toelrating diet, vboiding normally, less fatigue, needs some magen eoff work, no CP SOB, mild cough, no GI or complaints. Past Medical History: Unchanged from Admission Objective Active Medications: Acetaminophen (Tylenol Tab*) 650 mg PO Q4H PRN PRN Reason: FEVER/PAIN Last Admin: 08/15/18 20:00 Dose: 650 mg Azithromycin (Zithromax 500 Mg/250 Ml) 500 mg in 250 mls @ 250 mls/hr IVPB Q24H [facility] Last Admin: 08/15/18 20:01 Dose: 250 mls/hr Ceftriaxone Sodium 1 gm/ (Sodium Chloride) 50 mls @ 200 mls/hr IVPB Q24H [facility] Last Admin: 08/15/18 17:24 Dose: 200 mls/hr Norgestimate (Ortho Tri-Cyclen (Nf)) 1 tab PO BEDTIME [facility] Last Admin: 08/15/18 20:01 Dose: 1 tab Ondansetron HCl (Zofran Inj*) 4 mg IV Q4H PRN PRN Reason: NAUSEA/VOMITING Last Admin: 08/13/18 23:00 Dose: 4 mg Vital Signs - 8 hr 08/16/18 08/16/18 03:08 07:50 Temperature 97.6 F 97.9 F Pulse Rate 79 81 Respiratory 20 22 Rate Blood Pressure 97/57 103/65 (mmHg) O2 Sat by Pulse 96 97 Oximetry Oxygen Devices in Use Now: None Appearance: Pleasant woman in NAD Eyes: No Scleral Icterus Ears/Nose/Mouth/Throat: NL Teeth, Lips, Gums Neck: NL Appearance and Movements; NL JVP Respiratory: Symmetrical Chest Expansion and Respiratory Effort, Clear to Auscultation Cardiovascular: NL Sounds; No Murmurs; No JVD, RRR Abdominal: NL Sounds; No Tenderness; No Distention Lymphatic: No Cervical Adenopathy Extremities: No Edema Skin: No Rash or Ulcers Neurological: Alert and Oriented x 3 Result Diagrams: 08/16/18 07:09 08/16/18 07:09 Microbiology and Other Data: Microbiology 08/13/18 16:00 Urine Culture - Final Urine No Growth (<1,000 CFU/mL) 08/13/18 22:04 Legionella Urinary Antigen - Final Urine Positive Legionella Antigen Streptococcus pneumoniae Ag Screen - Final Negative S. pneumo Antigen Assess/Plan/Problems-Billing Assessment: 28F no sig PMH aside from obesity who was admitted with pleurtic chest pain found to have PNA, legionella antigen + - Patient Problems (1) Pneumonia Current Visit: Yes Status: Acute Code(s): J18.9 - PNEUMONIA, UNSPECIFIED ORGANISM SNOMED Code(s): 144548044 Comment: - urine for legionella came back positive - Patient covered with Azithromcyin IV from admission Day 4/__ (7-10 days), will d/c on oral for a total of 10 days - On both rocephin and azithromycin for now ( ?uti also), d/c rocephin - Dr Isaac had consulted ID, they can decide if reporting is necessary (2) UTI (urinary tract infection) Current Visit: Yes Status: Acute Comment: - E-coli from previous ER admission. - At this time it is being treated properly with Ceftriaxone for her pneumonaie anyway. Will continue - CT abdomen did not show any evidence of hydro or pyelo - her hematuria most likely due to her menses (active) (3) DVT prophylaxis Current Visit: Yes Status: Acute Code(s): Z29.9 - ENCOUNTER FOR PROPHYLACTIC MEASURES, UNSPECIFIED SNOMED Code(s): 291767287 Comment: - low risk, ambulate (4) Full code status Current Visit: Yes Status: Acute Code(s): Z78.9 - OTHER SPECIFIED HEALTH STATUS SNOMED Code(s): 165388347 Status and Disposition: D.C to home
--- NOTE | 2018-08-16 13:02 | DS ---
DISCHARGE SUMMARY: DATE OF ADMISSION: 08/13/18 DATE OF DISCHARGE: 08/16/18 PRIMARY CARE PROVIDER: None at this time. Outpatient referral has been placed. PRIMARY DIAGNOSIS: Legionella pneumonia. SECONDARY DIAGNOSES: 1. Obesity. 2. Prior urinary tract infection. MEDICATIONS ON DISCHARGE: 1. Azithromycin 500 mg p.o. daily x6 additional days after discharge. 2. Oral contraceptives as per patient's prior. 3. P.r.n. Tylenol. Changes to medication list on this hospitalization include the addition of azithromycin for a total o f 6 days after discharge to complete a 10-day course of azithromycin. HISTORY OF PRESENT ILLNESS AND HOSPITAL COURSE: This is a 28-year-old healthy female who presented t o the emergency room on 08/13/18 evening with complaints of generalized fatigue, body aches, and dizz iness with cough. She reports that these symptoms had been going on for about 2 weeks. She thought that she had a UTI and she was placed on Keflex for such, although she reports no real improvement in her symptoms and had persistent body aches, dizziness, fatigue and that progressed into vomiting and nausea and then shortness of breath. When she presented in the emergency room, her vital signs were stable. Her chest x-ray showed a left lower lobe pneumonia and she was admitted for pneumonia with low CURB score. HOSPITAL COURSE BY PROBLEMS: 1. Pneumonia. This patient was admitted under observation initially, although she needed significan t IV fluid rehydration with improvement of her symptoms and ultimately her urine Legionella antigen c karthikeyan back positive. She was treated with azithromycin and Infectious Disease was made aware, who will report the case as needed. She improved significantly on azithromycin and will be discharged on a t otal of 10 days. 2. ? Urinary tract infection. The patient did have hematuria and protein on prior urinalysis. She had been treated with Keflex as outpatient and her repeat urine cultures were negative, thus further Keflex was discontinued and the patient will be managed on azithromycin alone for known left lower lo be pneumonia. 3. DVT prophylaxis. The patient was low risk and ambulated throughout her stay. DISPOSITION ON DISCHARGE: The patient is tolerating diet, voiding, ambulating without oxygen and fee ling much improved compared to her admission status. She is counseled on the type of pneumonia that she has atypical and will need to continue with oral antibiotics for a total of 10 days. She is stab le for discharge to home and has no further questions. ITEMS TO FOLLOW UP ON STATUS POST DISCHARGE: 1. Pneumonia. She did have Legionella pneumonia per antigen and had left lower lobe pneumonia on im aging. She has clinically improved significantly and likely no imaging will need to be repeated unle ss patient's clinical symptoms do not improve. She will have completed azithromycin 500 mg p.o. daily per IDSA guidelines for a total of 10 days. ID was consulted during this hospitalization, will repo rt as needed. 2. Work release. The patient is to remain out of work for the remainder of the week and return on 0 08/23/18. She currently does not have a primary care provider and a referral has been placed for her to get in touch with [facility] in the interim. DATA AT TIME OF DISCHARGE: Vital signs are stable. Labs from 08/16/18, show hemoglobin of 10.9, hem atocrit of 32 consistent with prior, mild normocytic anemia in the past; white blood cell count is 6. 9 and platelets of 359. BMP shows a sodium of 141, potassium 3.7, chloride 108, carbon dioxide 26, a nion gap 7, BUN 4, creatinine 0.62, glucose 93. LFTs were normal during this hospitalization. TIME SPENT: 30 minutes was spent in the planning of this discharge with over half of that was spent directly at the bedside of the patient providing direct patient care. The patient will be discharged to home with her and they understand reason for hospitalization, reasons to return, and to r emain on work release for an additional 1 week and to complete antibiotics regardless of whether she is feeling better or not. They have no further questions and are safely discharged to home. [id number]/[facility] #: [id number]
== END 2018-08-16 13:30 | disposition home or self-care (01) | DRG 137 ==
LOC: ED 14:05 → MED 19:55 → OBSVTOIN 08-14 22:22
PROVIDERS: ADMIT Hospitalist; ATTEND Internal Medicine
DX: A48.1 Legionnaires' disease (principal); Z68.42 Body mass index [BMI] 45.0-49.9, adult; N39.0 Urinary tract infection, site not specified; E66.9 Obesity, unspecified; R31.9 Hematuria, unspecified; Z80.49 Family history of malignant neoplasm of other genital organs; Z79.3 Long term (current) use of hormonal contraceptives
CPT/HCPCS: 36415; 71046; 74176; 80048; 80053; 81003; 81015; 83605; 85025; 85610; 85730; 87040; 87086; 87899; 93005; 99284; A9270-GY; J0456; J0696; J1885; J2405